=== PATIENT | female | born 1940 | race Caucasian/White ===

== ENCOUNTER 2017-09-21 14:46 | Emergency (ER) | payer MEDICARE, BC ==
[~2017-09-21] VITALS: Ht 157.5 cm; Wt 73.5 kg
[~2017-09-21 14:46] MED LIST: AMITRIPTYLINE H25 MG PO; CALTRATE 600 W1 EACH PO; CENTRUM SILVER1 EAC3 PO; CLONAZEPAM0.5 MG PO; HYDROCHLOROTHIA25 MG; LEVOTHYROXINE50 MCG PO; LOSARTAN PO; METOPROLOL TART50 MG PO; OMEPRAZOLE40 MG PO; PRIMIDONE50 MG PO; RANITIDINE HCL150 MG PO; RESTORIL15 MG PO; SYNTHROID50 MCG; ZETIA10 MG PO
--- OUTSIDE RECORDS SUMMARY | 2017-09-21 14:48 | XMS REPORT ---
Author Author [facility] Address Unknown Phone Unavailable Care Team Providers Care Configuration Release Manager Name Role Phone JAYNE PRITCHETT Unavailable Unavailable Problems This patient has no known problems. Allergies, Adverse Reactions, Alerts This patient has no known allergies or adverse reactions. Medications This patient has no known medications. Results Test Description Test Time Test Comments Text Results Atomic Results Result Comments CT BRAIN WO [place] [id number] [place] [address] Patient Name: HOLLY GALINDO MR # : [id number] : 1940 Age/Sex: 76/F Req #: [id number] Adm Physician: Ordered by: JAYNE PRITCHETT MD Report #: [id number] Location: ER Room/Bed: Procedure: [id number] CT/CT BRAIN WO Exam Date: 06/17/17 Exam Time: 1150 REPORT STATUS: Signed Exam: Head CT without contrast History: Trauma , fall, hit left for head. Comparison studies: None Technique: Axial images were obtained from the skull base to the vertex. Coronal and sagittal images reconstructed from the axial data. Intravenous contrast: None Findings: Scalp: No abnormalities. Bones: No fractures, blastic or lytic lesions. Brain sulci: Appropriate for age. Ventricles: Mild compensatory dilatation. No hydrocephalus. Extra-axial spaces: No masses, no fluid collection. Parenchyma: No mass, acute hemorrhage or acute cortical vascular insults. A few scattered hypodensities in the supratentorial or nonspecific but most compatible with chronic small vessel ischemic changes. Small lacunar infarcts in the head and body of the right caudate nucleus, anterior limb of the right internal capsule and in the left superior putamen. Sellar/suprasellar region: No abnormalities. Craniocervical junction: Patent foramen magnum. No Chiari one malformation. Incidental findings: Nonspecific inflammatory mucosal thickening with fluid level in the right maxillary sinus. Bilateral lens replacements related to previous cataract surgery. IMPRESSION: 1. No acute intracranial abnormalities. 2. No calvarial fracture. 3. Inflammatory changes in the right maxillary sinus which could be correlated for acute sinusitis. 4. Mild chronic microvascular ischemic changes and small lacunar infarcts as described. Signed by: Dr. Karolyn Poe M.D. on 06/17/2017 12:13 PM Dictated By: KAROLYN POE MD 1213 Transcribed By: TREE on 06/17/17 1213 COPY TO: JAYNE PRITCHETT MD HAND 3+ VIEWS LEFT [place] [address] Patient Name: HOLLY GALINDO MR #: [id number] : 1940 Age/Sex: 76/F Req #: [id number] Adm Physician: Ordered by: JAYNE PRITCHETT MD Report #: [id number] Location: ER Room/Bed: Procedure: [id number] DX/HAND 3+ VIEWS LEFT Exam Date: 06/17/17 Exam Time : 1040 REPORT STATUS: Signed PROCEDURE: X-RAY LEFT HAND, THREE OR MORE VIEWS COMPARISON: None. INDICATIONS: HAND PAIN, FALL ON LEFT HAND FINDINGS: Limited by generalized demineralization and overlying rings. Periarticular osteopenia. Degenerative changes of the first carpometacarpal joint. No acute fracture or dislocation. CONCLUSION: No definite evidence of acute displaced fracture or dislocation of the left hand. Dictated by: Darrell Gaytan M.D. on at 13:05 Electronically approved by: Darrell Gaytan M.D. on at 13:05 Dictated By: DARRELL GAYTAN MD 1304 Transcribed By: ALEJANDRO on 06/17/17 1300 COPY TO: JAYNE PRITCHETT MD
[2017-09-21] MEDS ORDERED: TESSALON PERLE100 MG PEG (17:26)
[2017-09-21] MEDS ORDERED: BROMFED DM COU118 ML PO (17:26)
== END 2017-09-21 18:15 | disposition home or self-care (01) ==
LOC: FSED 14:46
DX: R05 Cough (principal); J00 Acute nasopharyngitis [common cold]
CPT/HCPCS: 99283